=== PATIENT | male | born 1985 | race Caucasian/White ===

== ENCOUNTER 2020-02-03 15:07 | Emergency (ER) | payer SELFPAY ==
[~2020-02-03] VITALS: Ht 182.8 cm; Wt 83.9 kg
[~2020-02-03 15:07] MED LIST: ANAPROX DS550 MG PO
[2020-02-03] MEDS ORDERED: ACULAR 0.5%3 ML OPH (16:13)
[2020-02-03] MEDS ORDERED: Tobrex Ophth S2.5 ML OPH (16:13)
== END 2020-02-03 16:13 | disposition home or self-care (01) ==
LOC: ED 15:07
DX: S05.02XA Injury of conjunctiva and corneal abrasion without foreign body, left eye, initial encounter (principal); X58.XXXA Exposure to other specified factors, initial encounter; Y93.89 Activity, other specified; Y92.89 Other specified places as the place of occurrence of the external cause; Y99.8 Other external cause status

== ENCOUNTER 2021-01-10 20:26 | Emergency (ER) | payer OTHER ==
[~2021-01-10] VITALS: Ht 180.3 cm; Wt 86.2 kg
[~2021-01-10 20:26] MED LIST changes: +ACULAR 0.5%3 ML OPH; +Tobrex Ophth S2.5 ML OPH
[2021-01-10 21:08] LABS: BASO # 0.1 10*3/uL (0.0-0.1); BASO % 0.8 % (0.0-1.0); EOS # 0.1 10*3/uL (0.0-0.4); EOS % 1.5 % (1.0-4.0); HEMATOCRIT 37.1 % (42.0-52.0); LYMPH # 2.9 10*3/uL (1.3-4.4); LYMPH % 33.1 % (27.0-41.0); MEAN CELL VOLUME 87.7 fl (80.0-94.0); MEAN CORPUSCULAR HGB CONC 35.3 g/dl (33.0-37.0); MEAN PLATELET VOLUME 9.4 fl (9.6-12.3); MONO # 0.7 10*3/uL (0.1-1.0); MONO % 7.6 % (3.0-9.0); NEUT % 56.7 % (47.0-73.0); PLATELET COUNT AUTOMATED 318 10*3/uL (130-400); RED BLOOD COUNT 4.23 10*6/uL (4.50-5.90); WHITE BLOOD COUNT 8.8 10*3/uL (4.8-10.8)
[2021-01-10 21:26] LABS: ALBUMIN 3.9 gm/dl (3.1-4.5); ALKALINE PHOSPHATASE 88 U/L (45-117); BUN 10 mg/dl (7-24); CHLORIDE 104 mmol/L (98-107); CREATININE 1.19 mg/dL (0.70-1.30); POTASSIUM 3.7 mmol/L (3.5-5.1); SGOT/AST 17 IU/L (3-35); SODIUM 138 mmol/L (136-145); TOTAL PROTEIN 7.5 gm/dL (6.4-8.2)
[2021-01-10 21:32] LABS: TROPONIN I < 0.015 ng/ml (<0.045)
[2021-01-10 21:45] LABS: SGPT/ALT 32 U/L (12-78)
== END 2021-01-11 00:31 | disposition home or self-care (01) ==
LOC: ED 20:26
PROVIDERS: Emergency Medicine
DX: R07.89 Other chest pain (principal)

== ENCOUNTER → 2025-03-05 | Outpatient (CLI) | payer OTHER ==
[2025-03-05 12:27] LABS: BF LYMPHOCYTES 7 %; BF MACROPHAGES 10 %; BF NEUTROPHILS 83 %
[2025-03-06 09:07] LABS: ACID FAST SPEC PROCESSING Tissue Grinding (.)
[2025-03-06 13:07] LABS: ANTI-SMOOTH MUSCLE ANTIBODY 7 Units (0-19)
[2025-03-07 02:06] LABS: LUPUS DRVVT 40.9 sec (0.0-47.0); PTT-LA 41.8 sec (0.0-43.5)
[2025-03-07 03:06] LABS: LUPUS REFLEX INTERPRETATION Comment: (.)
== END | disposition home or self-care (01) ==
LOC: LAB 09:19
PROVIDERS: ATTEND Orthopaedic Surgery
DX: M25.569 Pain in unspecified knee (principal)

== ENCOUNTER → 2025-03-09 | Outpatient (CLI) | payer OTHER | END | disposition home or self-care (01) | LOC: MRI 15:18 | PROVIDERS: ATTEND Orthopaedic Surgery | DX: M17.11 Unilateral primary osteoarthritis, right knee (principal); M25.461 Effusion, right knee; M25.861 Other specified joint disorders, right knee; M25.561 Pain in right knee ==